=== PATIENT | female | born 1965 | race African-American/Black ===

== ENCOUNTER 2022-02-15 15:17 | Inpatient (IN) | payer OTHER ==
[~2022-02-15] VITALS: Ht 162.6 cm; Wt 85.3 kg
[2022-02-15] MEDS ORDERED: LACTATED RINGER'S 1,000 ML INJ STA (15:32)
[2022-02-15] MEDS ORDERED: SODIUM CHLORIDE FLUSH 10 ML SYR IV PRN (15:45)
[2022-02-15] MEDS ORDERED: ONDANSETRON HCL INJ 2MG/ML 2ML 2 MG/ML VIAL IV ONE (15:45)
[2022-02-15 16:01] LABS: EOSINOPHILS % 0.5 % (0.0-6.0); HEMATOCRIT 40.8 % (34.2-44.1); HEMOGLOBIN 12.9 g/dL (12.0-16.0); LYMPHOCYTES # (AUTO) 1.2 (1.0-3.2); LYMPHOCYTES % 29.8 % (18.0-39.1); MEAN CORPUSCULAR HEMOGLOBIN 27.6 pg (28-32); MEAN CORPUSCULAR HGB CONC 31.6 g/dL (31-35); MEAN CORPUSCULAR VOLUME 87.4 fL (81-99); MONOCYTES # (AUTO) 0.5 (0.2-0.8); MONOCYTES % 13.7 % (4.4-11.3); NEUTROPHILS # (AUTO) 2.1 (2.1-6.9); NEUTROPHILS % 54.7 % (38.7-80.0); PLATELET COUNT 249 x10e3/uL (140-360); RED BLOOD COUNT 4.67 x10e6/uL (3.6-5.1); RED CELL DISTRIBUTION WIDTH 16.6 % (11.7-14.4)
[2022-02-15 16:21] LABS: ALBUMIN/GLOBULIN RATIO 0.7 (0.8-2.0); ANION GAP 27.6 mmol/L (8-16); CALCIUM 8.4 mg/dL (8.4-10.2); CREATININE, SERUM 1.04 mg/dL (0.57-1.11)
[2022-02-15 16:28] LABS: POTASSIUM 2.6 mmol/L (3.5-5.1)
[2022-02-15] MEDS ORDERED: MAGNESIUM SULFATE 2GM/50ML 50 ML IV ONE (16:30)
[2022-02-15] MEDS ORDERED: POTASSIUM CHLORIDE 10MEQ/100ML 100 ML IV SCH (16:45)
[2022-02-15] MEDS ORDERED: IOPAMIDOL 370 MG/ML 100 ML INFUS..BTL INJ ONE (16:58)
[2022-02-15] MEDS ORDERED: POTASSIUM CHL 40 MEQ in SODIUM CHLORIDE 0.9% 250ML 250 ML IV ONE (17:00)
[2022-02-15] MEDS ORDERED: Morphine 4mg Syringe 4 MG/ML INJ IV PRN (18:45)
[2022-02-15] MEDS ORDERED: ONDANSETRON HCL INJ 2MG/ML 2ML 2 MG/ML VIAL IV PRN (18:45)
[2022-02-15] MEDS ORDERED: DIATRIZOATE MEGL/DIATRIZOA SOD 30 ML BTL PO ONE (19:10)
[2022-02-15 20:00] VITALS: BP 103/90
[2022-02-15 20:13] LABS: CLARITY,URINE CLEAR (CLEAR); COLOR,URINE YELLOW (YELLOW); KETONES,URINE 1+ (NEGATIVE); LEUKOCYTE ESTERASE ,URINE 2+ (NEGATIVE); NITRITE,URINE NEGATIVE (NEGATIVE); PROTEIN,URINE DIPSTICK NEGATIVE (NEGATIVE); URINE UROBILINOGEN 0.2 mg/dL (0.2 - 1)
[2022-02-15 20:28] LABS: WBC,URINE (MAN) 21-50 /HPF (0-5)
[2022-02-15 20:29] LABS: BACTERIA,URINE MODERATE /HPF
[2022-02-15 20:30] LABS: EPITHELIAL CELLS,URINE MODERATE /LPF; RENAL EPITHELIAL CELLS,URINE FEW
[2022-02-15] MEDS: SODIUM CHLORIDE 0.9% 1000ML 1,000 ML IV SCH (22:42)
[2022-02-16] VITALS (9 sets, daily range): BP systolic 103–136; BP diastolic 70–100
[2022-02-16] MEDS: SODIUM CHLORIDE 0.9% 1000ML 1,000 ML IV SCH ×2 (03:21→10:45)
[2022-02-16] MEDS ORDERED: ONDANSETRON ODT4 MG PO (03:48)
[2022-02-16] MEDS ORDERED: METOCLOPRAM5 MG/5 ML PO (03:48)
[2022-02-16] MEDS ORDERED: FAMOTIDINE20 MG PO (03:56)
[2022-02-16] MEDS ORDERED: REGLAN10 MG PO (03:56)
[2022-02-16] MEDS ORDERED: XARELTO20 MG PO (03:56)
[2022-02-16 05:49] LABS: BASOPHILS % 0.7 % (0.0-1.0); EOSINOPHILS % 0.5 % (0.0-6.0); HEMATOCRIT 35.6 % (34.2-44.1); HEMOGLOBIN 11.3 g/dL (12.0-16.0); LYMPHOCYTES # (AUTO) 1.1 (1.0-3.2); LYMPHOCYTES % 26.7 % (18.0-39.1); MEAN CORPUSCULAR HEMOGLOBIN 27.8 pg (28-32); MEAN CORPUSCULAR HGB CONC 31.7 g/dL (31-35); MEAN CORPUSCULAR VOLUME 87.7 fL (81-99); MONOCYTES # (AUTO) 0.7 (0.2-0.8); NEUTROPHILS # (AUTO) 2.4 (2.1-6.9); NEUTROPHILS % 55.9 % (38.7-80.0); PLATELET COUNT 222 x10e3/uL (140-360); RED BLOOD COUNT 4.06 x10e6/uL (3.6-5.1); RED CELL DISTRIBUTION WIDTH 16.7 % (11.7-14.4)
[2022-02-16 06:29] LABS: ALBUMIN 2.6 g/dL (3.5-5.0); ALBUMIN/GLOBULIN RATIO 0.7 (0.8-2.0); ANION GAP 23.8 mmol/L (8-16); CALCIUM 7.7 mg/dL (8.4-10.2); CREATININE, SERUM 0.83 mg/dL (0.57-1.11)
[2022-02-16 06:30] LABS: POTASSIUM 2.8 mmol/L (3.5-5.1)
[2022-02-16] MEDS ORDERED: POTASSIUM CHLORIDE 20MEQ/100ML 200 ML IV ONE (07:00)
[2022-02-16] MEDS ORDERED: FOLIC ACID 1 MG TAB PO ONE (14:30)
[2022-02-16] MEDS ORDERED: THIAMINE HCL INJ 100 MG/ML 2ML VIAL IM ONE (14:30)
[2022-02-16] MEDS: LIDOCAINE 4% PATCH TP SCH (15:00)
[2022-02-16 15:32] LABS: INR 1.07; PROTHROMBIN TIME 14.9 seconds (11.9-14.5)
[2022-02-16 15:33] LABS: PARTIAL THROMBOPLASTIN TIME 26.3 seconds (23.8-35.5)
[2022-02-16] MEDS: LACTATED RINGER'S 1,000 ML INJ SCH (15:58)
[2022-02-16] MEDS: HEPARIN SOD (PORCINE) 5,000 UNIT/ML VIAL SC SCH (21:46)
[2022-02-17] VITALS (7 sets, daily range): BP systolic 113–135; BP diastolic 73–94
[2022-02-17] MEDS: FAMOTIDINE 20 MG/2 ML VIAL IV SCH ×3 (00:18→17:19)
[2022-02-17] MEDS: LACTATED RINGER'S 1,000 ML INJ SCH ×2 (00:18→10:12)
[2022-02-17 05:45] LABS: BASOPHILS # (AUTO) 0.1 (0.0-0.1); BASOPHILS % 1.3 % (0.0-1.0); EOSINOPHILS # (AUTO) 0.2 (0.0-0.4); EOSINOPHILS % 6.3 % (0.0-6.0); HEMATOCRIT 36.1 % (34.2-44.1); HEMOGLOBIN 11.2 g/dL (12.0-16.0); LYMPHOCYTES # (AUTO) 1.3 (1.0-3.2); MEAN CORPUSCULAR HEMOGLOBIN 27.9 pg (28-32); MONOCYTES # (AUTO) 0.6 (0.2-0.8); NEUTROPHILS # (AUTO) 1.6 (2.1-6.9); NEUTROPHILS % 42.9 % (38.7-80.0); PLATELET COUNT 204 x10e3/uL (140-360); RED BLOOD COUNT 4.01 x10e6/uL (3.6-5.1); RED CELL DISTRIBUTION WIDTH 17.2 % (11.7-14.4)
[2022-02-17 06:06] LABS: ALANINE AMINOTRANSFERASE 12 IU/L (0-55); ALBUMIN 2.7 g/dL (3.5-5.0); ALBUMIN/GLOBULIN RATIO 0.9 (0.8-2.0); ALKALINE PHOSPHATASE 78 IU/L (40-150); ANION GAP 19.9 mmol/L (8-16); BLOOD UREA NITROGEN < 5 mg/dL (7-26); CALCIUM 7.8 mg/dL (8.4-10.2); CARBON DIOXIDE 23 mmol/L (22-29); CHLORIDE 111 mmol/L (98-107); CREATININE, SERUM 0.76 mg/dL (0.57-1.11); EST GLOMERULAR FILTRATION RATE 96 ML/MIN (60-); SODIUM 151 mmol/L (136-145)
[2022-02-17 06:07] LABS: BUN/CREATININE RATIO 7 (6-25)
[2022-02-17 06:09] LABS: GLUCOSE 59 mg/dL (74-118); POTASSIUM 2.9 mmol/L (3.5-5.1)
[2022-02-17] MEDS: HEPARIN SOD (PORCINE) 5,000 UNIT/ML VIAL SC SCH ×2 (09:00→21:50)
[2022-02-17] MEDS: LIDOCAINE 4% PATCH TP SCH (09:16)
[2022-02-17] MEDS: POTASSIUM CHLORIDE 20MEQ/100ML 100 ML IV SCH ×3 (11:22→16:08)
[2022-02-17] MEDS: DEXTROSE 5% 1,000 ML IV SCH (18:31)
[2022-02-18] VITALS (10 sets, daily range): BP systolic 93–135; BP diastolic 70–95
[2022-02-18] MEDS: DEXTROSE 5% 1,000 ML IV SCH ×3 (05:53→23:30)
[2022-02-18 06:29] LABS: ANION GAP 14.9 mmol/L (8-16); BLOOD UREA NITROGEN < 5 mg/dL (7-26); CALCIUM 7.2 mg/dL (8.4-10.2); CARBON DIOXIDE 29 mmol/L (22-29); CHLORIDE 107 mmol/L (98-107); EST GLOMERULAR FILTRATION RATE 106 ML/MIN (60-); GLUCOSE 85 mg/dL (74-118); MAGNESIUM 1.4 MG/DL (1.3-2.1); PHOSPHORUS 2.2 MG/DL (2.3-4.7); SODIUM 148 mmol/L (136-145)
[2022-02-18 06:37] LABS: BUN/CREATININE RATIO 7 (6-25); POTASSIUM 2.9 mmol/L (3.5-5.1)
[2022-02-18] MEDS: HEPARIN SOD (PORCINE) 5,000 UNIT/ML VIAL SC SCH ×2 (09:00→21:28)
[2022-02-18] MEDS ORDERED: POTASSIUM CHLORIDE 20MEQ/100ML 100 ML IV ONE ×2 (09:30→12:00)
[2022-02-18] MEDS ORDERED: POTASSIUM CHLORIDE 10MEQ EA PO ONE (09:30)
[2022-02-18] MEDS: LIDOCAINE 4% PATCH TP SCH (09:56)
[2022-02-18] MEDS: FAMOTIDINE 20 MG/2 ML VIAL IV SCH ×2 (09:56→17:34)
[2022-02-18] MEDS ORDERED: MAGNESIUM SULF 1GRAM/DEXTROSE 100 ML IV ONE (18:30)
[2022-02-18] MEDS ORDERED: SODIUM PHOSPHATE 10 MMOL in SODIUM CHLORIDE 0.9% 250ML 250 ML IV ONE (20:00)
[2022-02-18] MEDS ORDERED: SODIUM PHOSPHATE 3 MMOL/ML INJ IV ONE (20:00)
[2022-02-18] MEDS ORDERED: MAGNESIUM SULFATE 2GM/50ML 50 ML IV ONE (21:00)
[2022-02-19] VITALS: BP 104/80
[2022-02-19 02:48] VITALS: BP 123/88
[2022-02-19 06:10] LABS: BASOPHILS % 1.1 % (0.0-1.0); EOSINOPHILS # (AUTO) 0.1 (0.0-0.4); EOSINOPHILS % 1.4 % (0.0-6.0); HEMATOCRIT 37.8 % (34.2-44.1); LYMPHOCYTES % 29.6 % (18.0-39.1); MEAN CORPUSCULAR HEMOGLOBIN 27.8 pg (28-32); MEAN CORPUSCULAR HGB CONC 31.7 g/dL (31-35); MEAN CORPUSCULAR VOLUME 87.5 fL (81-99); MONOCYTES # (AUTO) 0.7 (0.2-0.8); MONOCYTES % 19.3 % (4.4-11.3); NEUTROPHILS # (AUTO) 1.7 (2.1-6.9); NEUTROPHILS % 47.7 % (38.7-80.0); PLATELET COUNT 196 x10e3/uL (140-360); RED BLOOD COUNT 4.32 x10e6/uL (3.6-5.1)
[2022-02-19 06:33] LABS: ANION GAP 14.3 mmol/L (8-16); BLOOD UREA NITROGEN < 5 mg/dL (7-26); CALCIUM 7.7 mg/dL (8.4-10.2); CARBON DIOXIDE 28 mmol/L (22-29); CHLORIDE 109 mmol/L (98-107); CREATININE, SERUM 0.77 mg/dL (0.57-1.11); EST GLOMERULAR FILTRATION RATE 95 ML/MIN (60-); GLUCOSE 97 mg/dL (74-118); MAGNESIUM 2.2 MG/DL (1.3-2.1); POTASSIUM 3.3 mmol/L (3.5-5.1); SODIUM 148 mmol/L (136-145)
[2022-02-19 06:41] LABS: BUN/CREATININE RATIO 6 (6-25)
[2022-02-19 08:12] VITALS: BP 108/80
[2022-02-19 08:26] VITALS: BP 108/80
[2022-02-19] MEDS: HEPARIN SOD (PORCINE) 5,000 UNIT/ML VIAL SC SCH (09:00)
[2022-02-19] MEDS: LIDOCAINE 4% PATCH TP SCH (09:10)
[2022-02-19] MEDS: DEXTROSE 5% 1,000 ML IV SCH ×2 (09:30→18:00)
[2022-02-19] MEDS ORDERED: POTASSIUM CHLORIDE 20MEQ/100ML 200 ML IV ONE (09:30)
[2022-02-19] MEDS: FAMOTIDINE 20 MG/2 ML VIAL IV SCH ×2 (10:30→17:27)
[2022-02-19 12:30] VITALS: BP 128/79
[2022-02-19 16:45] VITALS: BP 107/81
== END 2022-02-19 19:54 | disposition home health service (06) | DRG 394 ==
LOC: ER 15:23 → ERHOLD 18:45 → MED/SURG3 20:43
PROVIDERS: ADMIT Internal Medicine; ATTEND Internal Medicine
DX: K95.89 Other complications of other bariatric procedure (principal); K31.1 Adult hypertrophic pyloric stenosis; N17.9 Acute kidney failure, unspecified; E87.2 Acidosis; E87.0 Hyperosmolality and hypernatremia; N39.0 Urinary tract infection, site not specified; E83.39 Other disorders of phosphorus metabolism; E87.6 Hypokalemia; R33.9 Retention of urine, unspecified; E86.0 Dehydration; R13.10 Dysphagia, unspecified; I10 Essential (primary) hypertension; E83.42 Hypomagnesemia; W01.0XXA Fall on same level from slipping, tripping and stumbling without subsequent striking against object, initial encounter; Y92.019 Unspecified place in single-family (private) house as the place of occurrence of the external cause; Z98.84 Bariatric surgery status; Z88.6 Allergy status to analgesic agent; Z88.5 Allergy status to narcotic agent; Z88.0 Allergy status to penicillin; Z86.718 Personal history of other venous thrombosis and embolism; Z79.01 Long term (current) use of anticoagulants; Z86.711 Personal history of pulmonary embolism; Y83.8 Other surgical procedures as the cause of abnormal reaction of the patient, or of later complication, without mention of misadventure at the time of the procedure
CPT/HCPCS: 36415; 74176; 74177; 76770; 80048; 80053; 81001; 82948; 83690; 83735; 84100; 84484; 85025; 85610; 85730; 87086; 93005; 99284; J1644; J2405; J3411; J3475; J3480; J7030; J7050; J7070; J7121; Q9967; U0002